=== PATIENT | female | born 1960 | race Asian ===

== ENCOUNTER 2018-05-01 16:30 | Emergency (ER) | payer OTHER ==
[~2018-05-01] VITALS: Ht 152.4 cm; Wt 45.4 kg
[2018-05-01 16:36] VITALS: BP 96/50; Ht 152.4 cm; Wt 45.4 kg
[2018-05-02] MEDS ORDERED: IBUPROFEN400 MG PO (19:31)
== END 2018-05-01 19:01 | disposition left against medical advice (07) ==
LOC: ED 16:30
DX: Z53.21 Procedure and treatment not carried out due to patient leaving prior to being seen by health care provider (principal)

== ENCOUNTER 2018-05-02 17:59 | Inpatient (IN) | payer OTHER | END 2018-05-05 11:04 | disposition left against medical advice (07) | LOC: ED 17:59 → MU 05-03 00:07 → ED 17:59 → MU 23:53 → ED 17:59 → MU 22:47 → ED 17:59 → MU 22:47 → ED 17:59 → MU 22:47 → ED 17:59 → MU 22:47 | DX: M62.830 Muscle spasm of back (principal); M47.896 Other spondylosis, lumbar region ==

== ENCOUNTER 2018-05-09 17:42 | Emergency (ER) | payer OTHER ==
[~2018-05-09] VITALS: Ht 152.4 cm; Wt 45.4 kg
[~2018-05-09 17:42] MED LIST: IBUPROFEN400 MG PO; SOMA350 MG PO; TRAMADOL HCL50 MG PO; ZOSC TD
[2018-05-09 17:57] VITALS: Ht 152.4 cm; Wt 45.4 kg
[2018-05-09 19:41] VITALS: BP 122/77
== END 2018-05-09 19:41 | disposition home or self-care (01) ==
LOC: ED 17:42
DX: M51.36 Other intervertebral disc degeneration, lumbar region (principal); M48.07 Spinal stenosis, lumbosacral region; G89.29 Other chronic pain
CPT/HCPCS: J1885